=== PATIENT | female | born 1935 | race Two or more races ===

== ENCOUNTER 2024-09-12 16:00 | Emergency (ER) | payer OTHER ==
[~2024-09-12] VITALS: Ht 160 cm; Wt 63.5 kg
[2024-09-12] MEDS ORDERED: GLUMETZA500 MG PO (16:09)
[2024-09-12] MEDS ORDERED: SERTRALINE HCL50 MG PO (16:10)
[2024-09-12] MEDS ORDERED: COZAAR100 MG PO (16:10)
[2024-09-12] MEDS ORDERED: NIFEDIPINE 20 MG CAPSULE PO ONE (16:30)
[2024-09-12] MEDS ORDERED: FAMOtidine 10 MG/ML (4ML VIAL) IV ONE (16:45)
[2024-09-12] MEDS ORDERED: IPRATROPIUM BROMIDE 0.5 MG/2.5 ML AMPUL.NEB IH ONE (16:45)
[2024-09-12] MEDS ORDERED: LEVALBUTEROL HCL 1.25 MG/3 ML SOLUTION IH ONE (16:45)
[2024-09-12] MEDS ORDERED: PIPERACILLIN/TAZOBACTAM SODIUM 3.375 GM VIAL IV ONE (16:45)
[2024-09-12] MEDS ORDERED: METHYLPREDNISOLONE SOD SUCC 40 MG VIAL IM ONE (16:45)
[2024-09-12] MEDS ORDERED: 0.9 % SODIUM CHLORIDE 1,000 ML IV SCH (16:45)
[2024-09-12 17:55] LABS: HEMATOCRIT 34.8 % (36.0-45.00); HEMOGLOBIN 11.7 g/dL (12.0-15.00); MEAN CELL VOLUME 83.1 fL (80.00-100.00); MEAN CORPUSCULAR HEMOGLOBIN 27.9 pg (27.00-32.0); MEAN CORPUSCULAR HGB CONC 33.5 g/dl (32.0-36.0); PLATELET COUNT 320 K/uL (150-450); RED BLOOD COUNT 4.19 M/uL (4.00-6.00)
[2024-09-12 18:22] LABS: ABG PH 7.352 (7.35-7.45); ABG PO2 66.4 mmHg (80-100); ABG pCO2 53.4 mmHg (35-45)
[2024-09-12 18:23] LABS: BASE EXCESS 2.1 mmol/l; BICARBONATE 28.9 mmol/l (23-25); SaO2 91.9 %; Tco2 30.6 mmol/l; allen test SATISFACTORY; o2 21 %; puncture site RADIAL RIGHT
[2024-09-12 18:24] LABS: ALBUMIN 3.2 gm/dL (3.4-5.0); BILIRUBIN TOTAL 0.24 mg/dL (0.3-1.2); CREATININE SERUM 0.63 mg/dL (0.55-1.02); GFR 89.18; GLOBULINA 4.2 G/DL (2.4-3.5); POTASSIUM 4.33 mEq/L (3.5-5.1); TOTAL PROTEIN 7.4 gm/dL (6.4-8.2)
[2024-09-12 18:26] LABS: C-REACTIVE PROTEIN 1.3 MG/DL (0.00-0.29)
[2024-09-12 18:47] LABS: ERYTHROCYTE SEDIMENTATION RATE 106 mm/hr
[2024-09-12] MEDS ORDERED: LEVALBUTER0.63 MG/3 IH (21:31)
[2024-09-12 22:01] LABS: PH,URINE 7.5 (5.0-8.0); URINE APPEARANCE Clear; URINE BILIRRUBIN Negative (NEGATIVE); URINE BLOOD Negative; URINE COLOR Yellow; URINE GLUCOSE Negative (NEGATIVE); URINE KETONE Negative (NEGATIVE); URINE LEUKOCYTE Negative; URINE NITRATE Negative; URINE PROTEIN Trace (NEGATIVE); URINE UROBILINOGEN 0.2 E.U./dl
[2024-09-12 22:05] LABS: URINE BACTERIA 29.3 uL (0.0-1933); URINE EPITHELIAL CELLS 2.6 uL (0.0-38.8); URINE RBC 25.9 uL (0.0-20.8)
== END 2024-09-12 21:47 | disposition home or self-care (01) ==
LOC: ER 16:00
PROVIDERS: General Practice
DX: R06.02 Shortness of breath (principal); I10 Essential (primary) hypertension; E11.9 Type 2 diabetes mellitus without complications; Z79.84 Long term (current) use of oral hypoglycemic drugs; Z88.8 Allergy status to other drugs, medicaments and biological substances; J43.8 Other emphysema
CPT/HCPCS: 71045; 82803; 93005; 94640; 96365; 96366; 99284; J2543; J3490; J7030